=== PATIENT | female | born 1960 | race Caucasian/White ===

== ENCOUNTER → 2021-11-01 11:19 | Outpatient (CLI) | payer OTHER, SELFPAY ==
[2021-11-01 12:15] LABS: Blood Urea Nitrogen 17 mg/dl (7-17); Estimated Glomerular Filt Rate 125 ml/min (>60); GFR (African American) 151 ML/MIN (>60)
== END ==
PROVIDERS: Visit Provider Surgery
DX: Z01.818 Encounter for other preprocedural examination (principal)
CPT/HCPCS: 36415; 82565; 84520

== ENCOUNTER → 2021-11-08 09:29 | Outpatient (CLI) | payer OTHER, SELFPAY ==
--- NOTE | 2021-11-08 09:41 | CT_ITS ---
FINAL REPORT CLINICAL HISTORY: abdominal pain and ventral hernia UMBILICAL ABD PAIN FINDINGS: Technique: The patient was injected with intravenous contrast. Axial images through the abdomen and pelvis were performed. Oral contrast was given. This study was performed with techniques to keep radiation doses as low as reasonably achievable (ALARA). Individualized dose reduction techniques using automated exposure control or adjustment of mA and/or kV according to the patient's size were employed. Abdomen: The lung bases are clear. The liver is normal in size and attenuation. Patient is status post cholecystectomy. The spleen is unremarkable. The adrenals are normal. The pancreas is unremarkable. There is a 1.9 cm fat attenuation mass in the lower pole of the left kidney consistent with an angiomyolipoma. The aorta is normal in caliber. There is no free fluid or adenopathy. Pelvis: The patient is status post appendectomy and hysterectomy. The urinary bladder is unremarkable. There is no free fluid or adenopathy. IMPRESSION: Postsurgical changes as detailed above. Mass in the left kidney consistent with an angiomyolipoma. Reviewed, Interpreted and Dictated by Tutu Guadalupe III, MD Transcribed by Viviane Adan Authenticated by Tutu Guadalupe III, MD on 11/08/2021 12:47:39 PM [facility]
== END ==
PROVIDERS: PCP Family Medicine; Visit Provider Surgery
DX: K43.9 Ventral hernia without obstruction or gangrene (principal)
CPT/HCPCS: 74177; Q9967

== ENCOUNTER → 2021-12-03 10:03 | Outpatient (CLI) | payer OTHER, SELFPAY ==
[2021-12-03 10:10] LABS: MANUAL DIFFERENTIAL MANUAL DIFFERENTIAL (MANUAL DIFF)
[2021-12-03 10:54] LABS: Basophils # 0.1 K/mm3 (0-0.2); Eosinophils # 0.1 K/mm3 (0.0-0.4); Eosinophils % 0.9 % (0.1-12.0); Hematocrit 42.1 % (37.0-47.0); Hemoglobin 13.5 g/dL (12.2-16.2); Lymphocytes # 1.3 K/mm3 (0.7-4.5); Lymphocytes % 15.4 % (10-50); Mean Corpuscular Volume 93.7 fl (81-99); Mean Platelet Volume 9.6 fl (7.4-10.4); Monocytes # 0.3 K/mm3 (0.1-1.0); Monocytes % 3.5 % (1.7-9.3); Neutrophils # 6.7 K/mm3 (1.8-7.8); Neutrophils % 79.2 % (37.0-80.0); Platelet Count 249 K/mm3 (142-424); Red Cell Distribution Width 14.5 % (11.5-17.5); White Blood Count 8.5 K/mm3 (4.8-10.8)
[2021-12-03 11:21] LABS: Anion Gap 3.2 mEq/L (5-15); Blood Urea Nitrogen 13 mg/dl (7-17); Calcium 9.5 mg/dl (8.4-10.2); Carbon Dioxide 29 mmol/L (22.0-30.0); Chloride 105 mmol/L (98-107); Estimated Glomerular Filt Rate 101 ml/min (>60); GFR (African American) 123 ML/MIN (>60); Glucose 106 mg/dl (74-100); Potassium 4.2 mmoL/L (3.5-5.1); Sodium 133 mmol/L (136-145)
[2021-12-03 17:51] LABS: Lymphocytes % 16 % (10-50); Monocytes % 3 % (2-9); Neutrophils % 81 % (42-76); Platelet Estimate Normal; Total Cells Counted 100
== END ==
PROVIDERS: Visit Provider Surgery
DX: Z01.812 Encounter for preprocedural laboratory examination (principal); Z11.52 Encounter for screening for COVID-19; K43.9 Ventral hernia without obstruction or gangrene
CPT/HCPCS: 36415; 80048; 85007; 85014; 85018; 85048; 85049; C9803; U0003; U0005

== ENCOUNTER 2021-12-05 06:00 | Day surgery (SDC) | payer OTHER, SELFPAY ==
[2021-12-02 10:43] VITALS: BMI 24.1
[2021-12-05] VITALS (11 sets, daily range): BP systolic 125–150; BP diastolic 67–89; PULSE 93–106; RESP 12–18; TEMP 36.2–43; O2SAT 92–100
--- NOTE | 2021-12-05 07:00 | HMH.ANESCL ---
[facility] Anesthesia Checklist - Patient Identification Patient Identification: Arm Band - Structural Data Admitted From: Home Planned Operative Procedure/s: Lap. inguinal hernia repair Consent for Planned Operative Procedure(s) Verified: Yes - NPO Status Verified Time NPO: 00:00 - Additional verifications Anesthesia Reactions: No Hx Blood Transfusions: No Blood Transfusion Reaction: No - Airway Assessment C-Spine Mobility Assessed: Yes TMJ Mobility Assessed: Yes Dentition: Good Dentition (Significant overbite) - Neurological Assessment Level of Consciousness: Awake Hx Seizures: No Numbness or tingling in extremities: No - Anesthesia Plan Anesthesia Risk discussed: Yes Anesthesia Plan: Verified ASA Class: II Anesthesia Type: General [facility] History I have reviewed the patient's past medical history: Yes Medical History: Reports:: Gastroesophageal Reflux Disease(GERD) Denies:: Cancer, Diabetes Mellitus Type 1, Diabetes Mellitus Type 2, Internal Pacemaker, MRSA, Seizures *Have you ever received a pneumonia vaccine?: No *Have you received a flu vaccine this season?: No Other Medical History: Denies: Blood Transfusion Reaction Anesthesia experience/problems:: None Other Surgeries: No: Pacemaker Amputation: No Fractures: No - *Social History Last grade of school completed: High school graduate Smoking Status: Never smoker Alcohol Intake: never Substance Use Type: denies use *Occupational Status:: employed Housing: house Household Members: spouse *Travel in the last 8 weeks: None Family Hx:: Unable to obtain
--- NOTE | 2021-12-05 08:32 | HMH.OPNOTE ---
Date of procedure: 12/05/21 Pre-op Diagnosis:: Trocar site incisional hernia Post-op Diagnosis:: Same Procedure performed:: Laparoscopically directed incisional hernia repair with placement of large size (8.0 cm) Bard Ventralex mesh Surgeon:: Tutu Garcia MD ASSISTANT PROFESSOR OF CRIMINAL JUSTICE:: Matthew Butler Anesthesia: VIR[place]IE Estimated blood loss (mL): 10 Clinical Note:: Patient presents for trocar incisional hernia repair. She is a very pleasant 61-year-old female from [facility] referred by Magda Rush for possible ventral hernia.? She states that she noticed an area several weeks ago characterized as some focal swelling in the mid upper abdomen.? She denies any significant pain.? She has undergone multiple laparoscopic procedures.? I had performed laparoscopic appendectomy on her for acute appendicitis on 09/09/2011 and laparoscopic cholecystectomy for biliary dyskinesia on 08/05/2012.? She had a laparoscopic hysterectomy at outside facility in 2009.? The bulge is above her umbilicus at incision done for her hysterectomy.? She does have some minor discomfort. I had her undergo CT scan. Interestingly this reveals no mention of a hernia. I did review the images and there appears to be a trocar site hernia at the site in question. Options were discussed with the patient. She wished to pursue repair. Plan was made for laparoscopy with laparoscopically directed versus fully laparoscopic repair. Operative findings:: She had a trocar site hernia is an incisional hernia in her upper abdomen with herniated falciform ligament. Defect size measured approximately 2 cm estimated. Operative note:: Patient was taken to the operating room. She was given preoperative intravenous antibiotics. In the operating room she was placed in a supine position. General anesthesia was induced via endotracheal tube. Garcia catheter was placed for bladder decompression. Abdomen was prepped and draped in the standard surgical fashion. 5 mm incision was made in the left subcostal area. 5 mm trocar was inserted under laparoscopic visualization. CO2 pneumoperitoneum was achieved to 15 mmHg. Laparoscopic surveillance was carried out. There were minimal intra-abdominal adhesions. The she had a trocar site hernia in her upper abdomen with herniated falciform ligament. She reduced this and dissected down the falciform ligament she ultimately required placement of additional 5 mm trocar in the left lower and right lower abdomen. Herniated falciform ligament was reduced from the defect and divided with JOHN ultrasonic harmonic hannah. Dissection was carried down superiorly to allow for mesh placement. Overall size of the defect appeared to measure about 2 cm. Plan was made for placement of large sized Bard Ventralex mesh for good fascial overlap. Large sized Bard Ventralex mesh measuring 8 cm diameter brought onto the field. 12 mm trocar was inserted through skin incision and previous laparoscopy scar at the site of the defect. Bard Ventralex mesh was inserted through the trocar. Trocar was then removed and mesh was elevated. It appeared to have good fascial overlap with excellent coverage laparoscopically. CO2 pneumoperitoneum was then evacuated. The tails of the mesh were sutured superiorly and inferiorly to the fascia with interrupted 2-0 Prolene suture. The Prolene tails were cut flush with the fascia. Fascia was closed over the mesh with several interrupted 0 Ethibond sutures. Please note that local anesthetic had been infiltrated. CO2 pneumo peritoneum was then reestablished. Mesh appeared to be in good position. However to allow for flush placement against the fascia the several OPTifix attacks were placed to secure the mesh. There was good hemostasis. Repair appeared adequate with good overlap. CO2 pneumoperitoneum was then evacuated. Additional local anesthetic was infiltrated. Skin incisions were closed with 4-0 Monocryl in subcuticular fashion. Steri-Strips and yessica
--- NOTE | 2021-12-05 08:41 | HMH.ANESI ---
[facility] Anesthesia Record Part I Intake, IV Amount: 800 Estimated blood loss (mL): 10 Urine output (mL): 75 Blood Pressure: 142/75 SaO2: 93 Pulse Rate: 102 Respiratory Rate: 17 Temperature: 97.2 F Patient is:: Drowsy Stable to PACU at:: 08:38
--- NOTE | 2021-12-05 10:52 | HMH.ANESII ---
[facility] Anesthesia Record Part II Discharge Time: 09:08 Destination: Surgical Day Care (OP Surgery) PACU nurse assessment reviewed?: Yes Patient Condition:: Good Anesthesia Complications:: None Swallowing reflex intact?: Yes Cyanosis?: No Blood Pressure: 141/80 Pulse Rate: 95 Temperature: 97.2 F Mental Status: Alert & Oriented Pain level:: 0 Nausea and/or vomitting:: None Intake, IV Amount: 0
[2021-12-05 12:09] LABS: Microscopic,Cath URINE MICROSCOPIC (MICROSCOPIC)
[2021-12-05 12:33] LABS: Appearance,Urine/Cath CLEAR (Clear); Bilirubin,Cath Negative (Negative); Blood, Urine/Cath TRACE-L (Negative); Color,Urine/Cath YELLOW (Yellow); Glucose,Urine/Cath (UA) Negative (Negative); Ketones,Urine/Cath Negative (Negative); Leukocyte Esterase,Cath Negative (Negative); Nitrate,Cath Negative (Negative); PH,Urine/Cath 6.5 (5.0-8.5); Protein,Urine/Cath Negative (Negative); Specific Gravity, Urine/Cath 1.015 (1.005-1.030); Urobilinogen,Cath 0.2 EU/dl (0.2)
[2021-12-05 13:44] LABS: Bacteria,Urine/Cath TRACE /lpf; RBC,Urine/Cath Occasional # /hpf (0-3); Squamous Epithelial Ur./Cath Occasional #/hpf (0-5)
== END 2021-12-05 09:42 | disposition home or self-care (01) ==
LOC: OR 06:03
PROVIDERS: PCP Family Medicine; Visit Provider Surgery
PROC: 0WQF4ZZ Repair Abdominal Wall, Percutaneous Endoscopic Approach (ICD-10-PCS; CPT 49654; principal; 2021-12-05 07:30)
DX: K43.2 Incisional hernia without obstruction or gangrene (principal); K21.9 Gastro-esophageal reflux disease without esophagitis; Z79.899 Other long term (current) drug therapy
CPT/HCPCS: 49654; 81001; 96374; C1781; J2405

== ENCOUNTER → 2022-07-03 08:36 | Outpatient (CLI) | payer OTHER, SELFPAY ==
[2022-07-03 20:25] LABS: Alanine Aminotransferase 15 U/L (12-78); Albumin Level 4.5 g/dl (3.5-5.0); Albumin/Globulin Ratio 1.8 (1.1-1.8); Alkaline Phosphatase 92 U/L (38-126); Anion Gap 18.4 mEq/L (5-15); Aspartate Amino Transferase 23 U/L (14-36); Bilirubin,Total 0.3 mg/dl (0.2-1.3); Blood Urea Nitrogen 20 mg/dl (7-17); Calcium 9.6 mg/dl (8.4-10.2); Carbon Dioxide 28 mmol/L (22.0-30.0); Chloride 97 mmol/L (98-107); Cholesterol 198 mg/dl (140-200); Estimated Glomerular Filt Rate 101 ml/min (>60); GFR (African American) 122 ML/MIN (>60); Globulin 2.5 g/dL (1.3-3.2); Glucose 89 mg/dl (74-100); HDL Cholesterol 66 mg/dl (40-60); Potassium 4.4 mmoL/L (3.5-5.1); Sodium 139 mmol/L (136-145); Triglycerides 71 mg/dl (30-150); VLDL Cholesterol 14 mg/dL (0-40)
[2022-07-03 20:41] LABS: 25-OH Vitamin D, Total 37.9 ng/mL (30-100)
[2022-07-03 20:51] LABS: Microalbumin < 6.000 mg/L (0-16.7)
[2022-07-03 20:56] LABS: Thyroid Stimulating Hormone 1.19 uIU/mL (0.465-4.68)
[2022-07-03 21:02] LABS: Basophils # 0.1 K/mm3 (0-0.2); Eosinophils # 0.1 K/mm3 (0.0-0.4); Eosinophils % 2.1 % (0.1-12.0); Hematocrit 56.5 % (37.0-47.0); Hemoglobin 17.5 g/dL (12.2-16.2); Lymphocytes # 1.8 K/mm3 (0.7-4.5); Lymphocytes % 28.4 % (10-50); Mean Corpuscular HGB Conc 30.9 g/dL (31.8-35.4); Mean Corpuscular Hemoglobin 29.7 pg (27.0-31.2); Monocytes # 0.3 K/mm3 (0.1-1.0); Monocytes % 4.7 % (1.7-9.3); Neutrophils % 63.7 % (37.0-80.0); Platelet Count 169 K/mm3 (142-424); Red Blood Count 5.88 M/mm3 (4.20-5.40); Red Cell Distribution Width 13.5 % (11.5-17.5); White Blood Count 6.3 K/mm3 (4.8-10.8)
[2022-07-03 21:15] LABS: Vitamin B12 476 pg/mL (239-931)
== END ==
PROVIDERS: PCP Nurse Practitioner; Visit Provider Nurse Practitioner
DX: I10 Essential (primary) hypertension (principal); Z13.220 Encounter for screening for lipoid disorders; Z13.1 Encounter for screening for diabetes mellitus; Z79.899 Other long term (current) drug therapy
CPT/HCPCS: 80053; 80061; 82043; 82306; 82607; 84443; 85025

== ENCOUNTER → 2022-12-26 13:48 | Outpatient (CLI) | payer OTHER, SELFPAY ==
[2022-12-26 18:43] LABS: Alanine Aminotransferase 20 U/L (12-78); Albumin Level 4.3 g/dl (3.5-5.0); Albumin/Globulin Ratio 1.5 (1.1-1.8); Alkaline Phosphatase 77 U/L (38-126); Anion Gap 16.4 mEq/L (5-15); Aspartate Amino Transferase 26 U/L (14-36); Bilirubin,Total 0.4 mg/dl (0.2-1.3); Blood Urea Nitrogen 14 mg/dl (7-17); Calcium 9.2 mg/dl (8.4-10.2); Carbon Dioxide 31 mmol/L (22.0-30.0); Chloride 97 mmol/L (98-107); Estimated Glomerular Filt Rate 125 ml/min (>60); GFR (African American) 151 ML/MIN (>60); Globulin 2.9 g/dL (1.3-3.2); Glucose 137 mg/dl (74-100); Potassium 4.4 mmoL/L (3.5-5.1); Sodium 140 mmol/L (136-145); Total Protein,Serum 7.2 g/dl (6.3-8.2)
[2022-12-26 19:26] LABS: Creatinine,Urine Random 49 mg/dL (Not Estab.); Microalbumin < 6.000 mg/L (0-16.7)
== END ==
PROVIDERS: PCP Nurse Practitioner; Visit Provider Nurse Practitioner
DX: I10 Essential (primary) hypertension (principal)
CPT/HCPCS: 80053; 82043; 82570

== ENCOUNTER → 2023-07-03 06:47 | Outpatient (CLI) | payer OTHER, SELFPAY ==
[2023-07-03 19:01] LABS: Basophils % 0.5 % (0.1-2.0); Eosinophils # 0.1 K/mm3 (0.0-0.4); Eosinophils % 2.1 % (0.1-12.0); Hematocrit 41.1 % (37.0-47.0); Hemoglobin 13.3 g/dL (12.2-16.2); Lymphocytes # 1.6 K/mm3 (0.7-4.5); Lymphocytes % 29.7 % (10-50); Mean Corpuscular HGB Conc 32.3 g/dL (31.8-35.4); Mean Corpuscular Hemoglobin 30.6 pg (27.0-31.2); Mean Corpuscular Volume 94.7 fl (81-99); Mean Platelet Volume 10.6 fl (7.4-10.4); Monocytes # 0.2 K/mm3 (0.1-1.0); Monocytes % 4.4 % (1.7-9.3); Neutrophils # 3.4 K/mm3 (1.8-7.8); Neutrophils % 63.2 % (37.0-80.0); Platelet Count 239 K/mm3 (142-424); Red Blood Count 4.34 M/mm3 (4.20-5.40); Red Cell Distribution Width 13.7 % (11.5-17.5); White Blood Count 5.4 K/mm3 (4.8-10.8)
[2023-07-03 19:15] LABS: Alanine Aminotransferase 20 U/L (12-78); Albumin Level 4.4 g/dl (3.5-5.0); Albumin/Globulin Ratio 1.6 (1.1-1.8); Alkaline Phosphatase 76 U/L (38-126); Anion Gap 9.5 mEq/L (5-15); Aspartate Amino Transferase 27 U/L (14-36); Bilirubin,Total 0.4 mg/dl (0.2-1.3); Blood Urea Nitrogen 18 mg/dl (7-17); Calcium 8.6 mg/dl (8.4-10.2); Carbon Dioxide 28 mmol/L (22.0-30.0); Chloride 104 mmol/L (98-107); Chol/HDL Ratio 3.2 (1-3.5); Cholesterol 218 mg/dl (140-200); Estimated Glomerular Filt Rate 101 ml/min (>60); GFR (African American) 122 ML/MIN (>60); Globulin 2.8 g/dL (1.3-3.2); Glucose 95 mg/dl (74-100); HDL Cholesterol 68 mg/dl (40-60); Potassium 4.5 mmoL/L (3.5-5.1); Sodium 137 mmol/L (136-145); Total Protein,Serum 7.2 g/dl (6.3-8.2); Triglycerides 76 mg/dl (30-150); VLDL Cholesterol 15 mg/dL (0-40)
[2023-07-03 19:26] LABS: Direct LDL Cholesterol 116.98 mg/dL (100-129)
[2023-07-03 19:46] LABS: Thyroid Stimulating Hormone 0.87 uIU/mL (0.465-4.68)
[2023-07-03 20:16] LABS: Hemoglobin A1C 5.6 % (4.0-6.0)
== END ==
PROVIDERS: PCP Nurse Practitioner; Visit Provider Nurse Practitioner
DX: I10 Essential (primary) hypertension (principal); Z13.1 Encounter for screening for diabetes mellitus; Z13.220 Encounter for screening for lipoid disorders
CPT/HCPCS: 80053; 80061; 83036; 84443; 85025

== ENCOUNTER → 2023-07-11 23:00 | Outpatient (CLI) | payer OTHER, SELFPAY ==
[2023-07-11 18:30] LABS: Uric Acid 3.1 mg/dl (2.5-6.2)
[2023-07-11 18:30] LABS: Basophils % 0.2 % (0.1-2.0); Eosinophils # 0.1 K/mm3 (0.0-0.4); Eosinophils % 1.1 % (0.1-12.0); Hematocrit 39.9 % (37.0-47.0); Hemoglobin 13.2 g/dL (12.2-16.2); Lymphocytes # 1.4 K/mm3 (0.7-4.5); Lymphocytes % 20.9 % (10-50); Mean Corpuscular Volume 93.9 fl (81-99); Mean Platelet Volume 9.8 fl (7.4-10.4); Monocytes # 0.3 K/mm3 (0.1-1.0); Monocytes % 5.1 % (1.7-9.3); Neutrophils # 4.9 K/mm3 (1.8-7.8); Neutrophils % 72.7 % (37.0-80.0); Platelet Count 247 K/mm3 (142-424); Red Blood Count 4.25 M/mm3 (4.20-5.40); Red Cell Distribution Width 13.6 % (11.5-17.5); White Blood Count 6.8 K/mm3 (4.8-10.8)
== END ==
PROVIDERS: PCP Nurse Practitioner; Visit Provider Nurse Practitioner
DX: M79.672 Pain in left foot (principal)
CPT/HCPCS: 84550; 85025

== ENCOUNTER → 2023-07-12 10:30 | Outpatient (CLI) | payer OTHER, SELFPAY ==
--- NOTE | 2023-07-12 10:33 | XR_ITS ---
FINAL REPORT CLINICAL HISTORY: left foot pain COMPARISON: None FINDINGS: 3 views of the left foot were obtained. There is no acute fracture or dislocation. The joint spaces are intact. There are soft tissue calcifications adjacent to the head of the fifth metatarsal. Plantar calcaneal spur is present. IMPRESSION: No acute fracture Reviewed, Interpreted and Dictated by Tutu Guadalupe III, MD Transcribed by Pepper Ferreira Authenticated and [facility]
== END ==
PROVIDERS: PCP Family Medicine; Visit Provider Nurse Practitioner
DX: M79.672 Pain in left foot (principal)
CPT/HCPCS: 73630

== ENCOUNTER 2024-01-01 12:03 | Outpatient (CLI) | payer OTHER, SELFPAY ==
[2024-01-01 18:18] LABS: Hemoglobin A1C 5.5 % (4.0-6.0)
[2024-01-01 18:38] LABS: Alanine Aminotransferase 17 U/L (12-78); Albumin Level 4.2 g/dl (3.5-5.0); Albumin/Globulin Ratio 1.5 (1.1-1.8); Alkaline Phosphatase 72 U/L (38-126); Anion Gap 12.2 mEq/L (5-15); Aspartate Amino Transferase 22 U/L (14-36); Bilirubin,Total 0.5 mg/dl (0.2-1.3); Blood Urea Nitrogen 16 mg/dl (7-17); Calcium 9.6 mg/dl (8.4-10.2); Carbon Dioxide 28 mmol/L (22.0-30.0); Chloride 104 mmol/L (98-107); Chol/HDL Ratio 2.7 (1-3.5); Cholesterol 217 mg/dl (140-200); Estimated Glomerular Filt Rate 101 ml/min (>60); GFR (African American) 122 ML/MIN (>60); Globulin 2.8 g/dL (1.3-3.2); Glucose 93 mg/dl (74-100); HDL Cholesterol 80 mg/dl (40-60); Potassium 4.2 mmoL/L (3.5-5.1); Sodium 140 mmol/L (136-145); Triglycerides 50 mg/dl (30-150); VLDL Cholesterol 10 mg/dL (0-40)
[2024-01-01 18:49] LABS: Direct LDL Cholesterol 108.58 mg/dL (100-129)
== END 2024-01-01 23:59 | disposition home or self-care (01) ==
LOC: LAB.DROPOF 01-02 12:03
PROVIDERS: PCP Nurse Practitioner; Visit Provider Nurse Practitioner
DX: I10 Essential (primary) hypertension (principal); E78.5 Hyperlipidemia, unspecified; Z79.899 Other long term (current) drug therapy
CPT/HCPCS: 80053; 80061; 83036

== ENCOUNTER 2024-01-14 10:45 | Outpatient (CLI) | payer OTHER, SELFPAY ==
--- NOTE | 2024-01-14 10:45 | MM_ITS ---
PROCEDURE INFORMATION: Exam: MG Bilateral Screening 3D Mammography Exam date and time: 01/14/2024 10:47 AM Age: 63 years old Clinical indication: Screening mammogram TECHNIQUE: Imaging protocol: Bilateral Screening tomosynthesis and 2D mammography including computer-aided detection (CAD) when performed. COMPARISON: 1. MG DMSB DIG MAMM-SCREEN LANDY W/CAD 06/12/2017 9:36 AM 2. MG DMSB DIG MAMM-SCREEN LANDY 06/18/2015 10:54 AM 3. MG DMSB DIG MAMM-SCREEN LANDY 06/12/2014 3:52 PM 4. MG DMSB DIG MAMM-SCREEN LANDY 05/28/2013 9:13 AM FINDINGS: MAMMOGRAPHY: Breast composition: There are scattered areas of fibroglandular density. Mass: None. Architectural distortion: No new or suspicious architectural distortion. Calcifications: No new or suspicious calcifications are present Asymmetric density: No new or suspicious asymmetric density is present Skin thickening: None. Axillary adenopathy: None. IMPRESSION: No mammographic evidence of malignancy. Recommend annual screening mammography unless otherwise clinically indicated. ASSESSMENT: BI-RADS category 1: Negative.
== END 2024-01-14 23:59 | disposition home or self-care (01) ==
LOC: RAD 10:45
PROVIDERS: PCP Nurse Practitioner; Visit Provider Nurse Practitioner
DX: Z12.31 Encounter for screening mammogram for malignant neoplasm of breast (principal)
CPT/HCPCS: 77063; 77067

== ENCOUNTER 2024-07-02 09:40 | Outpatient (CLI) | payer OTHER, SELFPAY ==
[2024-07-02 19:15] LABS: Creatinine,Urine Random 36 mg/dL (Not Estab.)
[2024-07-02 19:38] LABS: Microalbumin < 6.000 mg/L (0-16.7)
[2024-07-02 19:47] LABS: Basophils % 0.6 % (0.1-2.0); Eosinophils # 0.1 K/mm3 (0.0-0.4); Eosinophils % 1.9 % (0.1-12.0); Hematocrit 40.3 % (37.0-47.0); Hemoglobin 13.3 g/dL (12.2-16.2); Lymphocytes # 1.3 K/mm3 (0.7-4.5); Lymphocytes % 26.8 % (10-50); Mean Corpuscular HGB Conc 33.1 g/dL (31.8-35.4); Mean Corpuscular Hemoglobin 30.6 pg (27.0-31.2); Mean Corpuscular Volume 92.6 fl (81-99); Mean Platelet Volume 10.5 fl (7.4-10.4); Monocytes # 0.3 K/mm3 (0.1-1.0); Monocytes % 5.5 % (1.7-9.3); Neutrophils # 3.1 K/mm3 (1.8-7.8); Neutrophils % 65.2 % (37.0-80.0); Platelet Count 246 K/mm3 (142-424); Red Blood Count 4.35 M/mm3 (4.20-5.40); Red Cell Distribution Width 13.8 % (11.5-17.5); White Blood Count 4.7 K/mm3 (4.8-10.8)
[2024-07-02 20:16] LABS: Alanine Aminotransferase 19 U/L (12-78); Albumin Level 4.2 g/dl (3.5-5.0); Albumin/Globulin Ratio 1.7 (1.1-1.8); Alkaline Phosphatase 67 U/L (38-126); Anion Gap 11.2 mEq/L (5-15); Aspartate Amino Transferase 23 U/L (14-36); Bilirubin,Total 0.6 mg/dl (0.2-1.3); Blood Urea Nitrogen 16 mg/dl (7-17); Calcium 9.3 mg/dl (8.4-10.2); Carbon Dioxide 27 mmol/L (22.0-30.0); Chloride 106 mmol/L (98-107); Chol/HDL Ratio 3.2 (1-3.5); Cholesterol 203 mg/dl (140-200); Estimated Glomerular Filt Rate 100 ml/min (>60); GFR (African American) 121 ML/MIN (>60); Globulin 2.5 g/dL (1.3-3.2); Glucose 93 mg/dl (74-100); HDL Cholesterol 64 mg/dl (40-60); Potassium 4.2 mmoL/L (3.5-5.1); Sodium 140 mmol/L (136-145); Total Protein,Serum 6.7 g/dl (6.3-8.2); Triglycerides 60 mg/dl (30-150); VLDL Cholesterol 12 mg/dL (0-40)
[2024-07-02 20:36] LABS: Direct LDL Cholesterol 113.91 mg/dL (100-129)
[2024-07-02 20:56] LABS: Thyroid Stimulating Hormone 0.89 uIU/mL (0.465-4.68)
[2024-07-02 21:15] LABS: Vitamin B12 469 pg/mL (239-931)
== END 2024-07-02 23:59 | disposition home or self-care (01) ==
LOC: LAB.DROPOF 07-04 09:16
PROVIDERS: PCP Nurse Practitioner; Visit Provider Nurse Practitioner
DX: K21.9 Gastro-esophageal reflux disease without esophagitis (principal); I10 Essential (primary) hypertension; E78.5 Hyperlipidemia, unspecified; Z12.11 Encounter for screening for malignant neoplasm of colon
CPT/HCPCS: 80050; 80053; 80061; 82043; 82570; 82607; 84443; 85025

== ENCOUNTER 2024-12-31 09:55 | Outpatient (CLI) | payer OTHER, SELFPAY ==
[2024-12-31 19:39] LABS: Alanine Aminotransferase 16 U/L (12-78); Albumin Level 4.6 g/dl (3.5-5.0); Albumin/Globulin Ratio 1.9 (1.1-1.8); Alkaline Phosphatase 67 U/L (38-126); Anion Gap 12.3 mEq/L (5-15); Aspartate Amino Transferase 21 U/L (14-36); Bilirubin,Total 0.6 mg/dl (0.2-1.3); Blood Urea Nitrogen 16 mg/dl (7-17); Calcium 9.3 mg/dl (8.4-10.2); Carbon Dioxide 28 mmol/L (22.0-30.0); Chloride 105 mmol/L (98-107); Cholesterol 189 mg/dl (140-200); Estimated Glomerular Filt Rate 100 ml/min (>60); GFR (African American) 121 ML/MIN (>60); Globulin 2.4 g/dL (1.3-3.2); Glucose 93 mg/dl (74-100); HDL Cholesterol 64 mg/dl (40-60); Potassium 4.3 mmoL/L (3.5-5.1); Sodium 141 mmol/L (136-145); Triglycerides 59 mg/dl (30-150); VLDL Cholesterol 12 mg/dL (0-40)
[2024-12-31 19:43] LABS: Creatinine,Urine Random 48 mg/dL (Not Estab.); Microalbumin < 6.000 mg/L (0-16.7)
[2024-12-31 19:50] LABS: Direct LDL Cholesterol 104.87 mg/dL (100-129)
[2024-12-31 20:11] LABS: Hemoglobin A1C 5.5 % (4.0-6.0)
[2024-12-31 20:20] LABS: HIV Combo NEGATIVE (Negative)
[2024-12-31 21:36] LABS: Hepatitis C Ab Qual. W/ RFX NEGATIVE (Negative)
== END 2024-12-31 23:59 | disposition home or self-care (01) ==
LOC: LAB.DROPOF 01-01 13:00
PROVIDERS: PCP Nurse Practitioner; Visit Provider Nurse Practitioner
DX: E78.5 Hyperlipidemia, unspecified (principal); I10 Essential (primary) hypertension; K21.9 Gastro-esophageal reflux disease without esophagitis; Z13.0 Encounter for screening for diseases of the blood and blood-forming organs and certain disorders involving the immune mechanism; Z13.1 Encounter for screening for diabetes mellitus
CPT/HCPCS: 80053; 80061; 82043; 82570; 83036; 86803; 87389

== ENCOUNTER 2025-07-13 10:15 | Outpatient (CLI) | payer MEDICARE, SELFPAY ==
[2025-07-13 15:20] LABS: Albumin Level 4.2 g/dl (3.5-5.0)
[2025-07-13 15:21] LABS: Alanine Aminotransferase 17 U/L (12-78); Albumin/Globulin Ratio 1.4 (1.1-1.8); Alkaline Phosphatase 69 U/L (38-126); Anion Gap 14.1 mEq/L (5-15); Aspartate Amino Transferase 22 U/L (14-36); Bilirubin,Total 0.6 mg/dl (0.2-1.3); Blood Urea Nitrogen 15 mg/dl (7-17); Calcium 9.4 mg/dl (8.4-10.2); Carbon Dioxide 26 mmol/L (22.0-30.0); Chloride 104 mmol/L (98-107); Cholesterol 190 mg/dl (140-200); Creatinine,Serum 0.60 mg/dl (0.52-1.04); Estimated Glomerular Filt Rate 100 ml/min (>60); GFR (African American) 121 ML/MIN (>60); Globulin 2.9 g/dL (1.3-3.2); Glucose 95 mg/dl (74-100); HDL Cholesterol 69 mg/dl (40-60); Potassium 4.1 mmoL/L (3.5-5.1); Sodium 140 mmol/L (136-145); Total Protein,Serum 7.1 g/dl (6.3-8.2); Triglycerides 56 mg/dl (30-150)
[2025-07-13 16:07] LABS: Vitamin B12 270 pg/mL (239-931)
== END 2025-07-13 23:59 ==
LOC: LAB.DROPOF 07-15 10:16
PROVIDERS: PCP Nurse Practitioner; Visit Provider Nurse Practitioner
DX: K21.9 Gastro-esophageal reflux disease without esophagitis (principal); I10 Essential (primary) hypertension; E78.5 Hyperlipidemia, unspecified
CPT/HCPCS: 80053; 80061; 82607

== ENCOUNTER 2025-08-04 10:05 | Outpatient (CLI) | payer MEDICARE, SELFPAY ==
--- OUTSIDE RECORDS SUMMARY | 2025-06-29 09:45 | XMS_ITS | Encounter Summary ---
Author Organization [place] [address] Care Team Providers Care Long Distance Billing Operator Name Role Phone Gentry Cook MD Primary Care Provider [phone] Reason for Referral * Biopsy Procedure (Routine) - Authorization Not Needed Specialty Diagnoses / Procedures Referred By Contac t Referred To Contact Dermatology Diagnoses AK (actinic keratosis) Procedures MA DESTRUCTION PREMALIGNANT LESION 1ST Adair Jackson MD [address] [place] [address] Phone: tel: fax: Adair Jackson MD [address] [place] [address] Phone: tel: fax: Referral ID Status Reason Start Date Expiration Date Visits Requested Visits Authorized [id number] Authorization Not Needed 5 06/29/2026 1 1 Reason for Visit * Reason Comments Establish Care * Biopsy Procedure (Routine) - Authorization Not Needed Specialty Diagnoses / Procedures Referred By Contdakota t Referred To Contact Dermatology Diagnoses AK (actinic keratosis) Procedures MA DESTRUCTION PREMALIGNANT LESION 1ST Adair Jackson MD [address] [place] [address] Phone: tel: fax: Adair Jackson MD [address] [place] [address] Phone: tel: fax: Referral ID Status Reason Start Date Expiration Date Visits Requested Visits Authorized [id number] Authorization Not Needed 06/29/2026 1 1 Encounter Details Date Type Department Care Team (Late st Contact Info) Description 06/29/2025 9:45 AM EST [facility] [address] [facility] Building [address] [id number] Adair Jackson MD [address] [id number] Encounter for screening for malignant neoplasm of skin (Primary Dx); History of melanoma; History of basal cell carcinoma (BCC); Multiple benign melanocytic nevi; Lentigines; SK (seborrheic keratosis); Brown angioma; AK (actinic keratosis) Social History Tobacco Use Types Packs/Day Years Used Date Smoking Tobacco: Never Smokeless Tobacco: Never Tobacco Cessation:Counseling Given: Not Answered Alcohol Use Standard Drinks/Week Comments No 0 (1 standard drink = 0.6 oz pur e alcohol) Sexually Active Control Partners Comments Yes Surgical Male Comments No Sex and Gender Information Value Date Recorded Sex Assigned at Not on file Legal Sex Female 4:15 AM EDT Gender Identity Not on file Sexual Orientation Not on file Occupation Industry Job Start Date Job End Date Not on file Not on file Not on file Not on file documented as of this encounter Progress Notes * Adair Jackson MD - 06/29/2025 9:45 AM EST HPI: Elias is a 65 y.o. female that presents for full body skin exam. She denies any changing or concerning lesions. History of melanoma and BCC. She requests a full skin exam. Dermatology Past History: Personal History of Skin Cancer/Melanoma: YES -MM, 0.3 mm depth, T1a, left upper arm, s/p WLE with Dr. Stoner 01/2023 -BCC, right chest, s/p excision 01/2023 Family history: Brother (Melanoma) Sunburns Easily: No Uses Sunscreen: Yes Social History reviewed with patient and no pertinent negatives at this time. Past Medical History: Past Medical History: Diagnosis Date Heartburn Hypertension Surgical History: Past Surgical History: Procedure Laterality Date APPENDECTOMY BLADDER SURGERY scope and dilation CHOLECYSTECTOMY HERNIA REPAIR ventral HYSTERECTOMY 08/06/2009 [facility] bso SOFT TISSUE BIOPSY Left 01/09/2023 Narrow Excision Left Arm ; Surgeon: Clemente Stoner MD; Location: [facility]; Service: General TUBAL LIGATION Social History: Social History Tobacco Use Smoking status: Never Smokeless tobacco: Never Vaping Use Vaping status: Never Used Substance Use Topics Alcohol use: No Drug use: No Family History: Family History Problem Relation Age of Onset Arthritis Mother High Cholesterol Mother High Blood Pressure Mother Hypertension Mother Cancer Father High Cholesterol Father Allergies: No Known Allergies Current Medications: Current Outpatient Medications Medication lisinopriL (PRINIVIL;ZESTRIL) 20 mg Oral Tablet tablet multivitamin capsule omeprazole (PRILOSEC) 20 mg Oral Capsule, Delayed Release(E.C.) No current facility-administered medications for this visit. Review of Systems: Gen: Denies fever chills or unintended weight loss. Heme: No easy bruising or bleeding MS: No joint pain, muscle weakness or aches Neuro: No reported seizures, no reported NG's or memory loss Psych: No reported change in mood Physical Exam: There were no vitals filed for this visit. General: WDWN: Normal Mood/Affect: Normal Orientation: Normal Examination of the following was performed and was normal, except as noted below: Psych/neuro, Scalp/hair, head/face, conjunctivae/eyelids, Neck, axilla/chest, abdomen, back, right upper extremity, left upper extremity, Nails/digits, right lower extremity, left lower extremity, buttocks, peripheral vascular, lymphatic, declined exam breasts/genitalia/groin Assessment and Plan: History of melanoma skin cancer: There is a well-healed scar without pigment or nodularity located on the upper left arm Plan: Counseling. I counseled the patient regarding the following: Skin Care: Patients with a history of non-melanoma skin cancer should wear sunblock and sun protective clothing. Expectations: Scars from excisional sites of non-melanoma skin cancers should be monitored for any recurrences. Contact Office if: If the patient notices discoloration or a bump arising from a previously stable scar or any new lesions that are not healing. -MM, 0.3 mm depth, T1a, left upper arm, s/p WLE with Dr. Stoner 01/2023 -Continue clinical observation History of BCC No evidence of recurrence, patient reassured Plan: Counseling. I counseled the patient regarding the following: Skin Care: Patients with a history of non-melanoma skin cancer should wear sunblock and sun protective clothing. Expectations: Scars from excisional sites of non-melanoma skin cancers should be monitored for any recurrences. Contact Office if: If the patient notices discoloration or a bump arising from a previously stable scar or any new lesions that are not healing. Seborrheic Keratoses : stuck-on, warty, greasy brown papules with pseudo-horn cysts located on the body throughout Plan: Counseling I counseled the patient regarding the following: Skin Care: Seborrheic Keratoses are benign. No treatment is necessary. Expectations: Seborrheic Keratoses are benign warty growths. Patients get more of them as they age. Lentigines: reticulated light avina macules in sun distribution Plan: Counseling I counseled the patient regarding the following: Skin Care: Lentigines can resolve with broad spectrum sunscreen, sun avoidance, bleaching creams, retinoids, chemical peels and laser. Expectations: Lentigines are benign pigmented lesions that occur on sun-exposed and sun-damaged skin. They are easily treatable. Benign Nevi : regular, symmetrical, evenly-colored macules and papules located on the body throughout Plan: Counseling I counseled the patient regarding the following: Instructions: Monthly self-skin checks to monitor for any changes in moles are recommended. Reviewed ABCDE and Enoch Velazquezling warning signs and recommended evaluation if any moles change in size, shape or color; itch, burn or bleed. Recommended daily OTC sunscreen at least SPF 30 with reapplication and photoprotection measures Expectations: Benign Nevi are pigmented nests of cells within the skin. No treatment is necessary. Contact Office if: Any moles change in size, shape or color; itch, burn or bleed. Brown Angiomas : bright brown-red papules located on the body throughout Plan: Counseling I counseled the patient regarding the following: Skin Care: Brown Angiomas can resolve with lasers or electrodesiccation. Expectations: Brown Angiomas are benign vascular growths. No treatment is necessary. Actinic Keratosis : hypertrophic erythematous papule with hyperkeratotic scale located on the rightcheek x1 Plan: Counseling I counseled the patient regarding the following: Skin Care: Sun protective clothing and broad spectrum sunscreen can prevent the formation of Actinic Keratoses. AKs can resolve with cryotherapy, photodynamic therapy, imiquimod, topical 5-FU. Expectations: Actinic Keratoses are precancerous proliferations that occur within sun damaged skin.If untreated, a small subset of AKs can develop into Squamous Cell Carcinoma. Contact Office if: If AKs fail to resolve despite treatment, or if you develop a side effect from therapy, such as unbearable crusting, scabbing, redness and tenderness. Educated on appropriate use of sunscreen and sun avoidance measures. Plan: Liquid Nitrogen Body Location(s): right cheek x1 Procedure Note: A total of 1 lesions were treated with liquid nitrogen for 2 freeze-thaw cycles lasting 5 seconds. The patient's consent was obtained including but not limited to risks of crusting, scabbing, blistering, scarring, darker or emr specialist pigmentary change, recurrence, incomplete removal and infection. I reviewed with the patient in detail post-care instructions. Patient is to wear sunprotection, and avoid picking at any of the treated lesions. Pt may apply Vaseline to crusted or scabbing areas. Follow Up: 6 months fbse documented in this encounter Miscellaneous Notes * Patient Instructions - Yudi Gilmore MA - 06/29/2025 9:45 AM EST Images from the original note were not included. If you had a biopsy today, I recommend the following for wound care: I recommend leaving the bandage in place and avoiding showering/baths for 24 hours. Thereafter, recommend washing sites with water and soap daily and applying vaseline liberally (at least once daily)to optimize healing. We recommend AGAINST topical antibiotics like neosporin and triple antibiotic,as these can cause skin allergy and rash, which makes healing more difficult. We will call you withthe results. If you had spots frozen (treated with cryotherapy) today, I recommend daily application of vaselineto areas to help the healing process. To help prevent skin cancer and prevent again of your skin, I strongly recommend the following: - that you stay out of sun, particularly from 10 am to 2 pm - wear broad spectrum sunscreen with SPF30 or above (look for sunscreens with zinc oxide, titanium dioxide in them) - If you're using a lotion version: apply 2 tablespoons to entire body to ensure thick enough layer When outside for prolonged periods, re-apply sunscreen every 2-3 hours Specific sunscreens that we love: Neutrogena Pure and Free Baby, Blue Lizard or Cerave stick sunscreens, Eucerin sensitive skin sunscreen, vanicream sunscreen, EltaMD (can order this on [employer]) - wear a broad-rimmed hat, even one that has UPF in it (this is the SPF but for clothing) [employer] - wear sun protective clothing (clothing with UV protection factor, also called UPF) Options include [employer] and MyFab, though you can find this on [employer] too. I recommend that you perform skin exams once a month What should you watch for? Things that are bleeding, hurting, not healing, or moles that are changing. When it comes to your moles, please pay special attention to the ABCDEs (as illustrated below; reproduced from the Melan[employer]). Melanoma is most common on the back and the back of the legs, so please make sure to recruit help to look at these areas. Melanoma sometimes comes from an old mole, but it's sometimes a new spot. If you're ever worried about anything, please contact me. Also, if you have a history of skin cancer (particularly melanoma), I recommend that you take a feel of your scars from prior melanoma excision once monthly. Please call us and let us know if you notice any new or changing lesions or if you feel any new bumps within scars from prior skin cancer surgeries (we will get you in to have lesions evaluated further). A - Asymmetrical shape - One half of the lesion does not match the other half. B - Border -- The edges are ragged, notched, irregular, or blurred C- Color - The color is not the same throughout or it has shades of avina, brown, black, red, white, or blue. D - Diameter - The mole is greater than 6 millimeters in size, about the size of a pencil eraser. E - Evolving - lesions that are evolving or changing documented in this encounter Plan of Treatment Upcoming Encounters Date Type Department Care Team (Late st Contact Info) Description 12/29/2025 9:45 AM EDT Office Visit [facility] [address] [facility] [address] [place] [address] Adair Jackson MD [address] [place] [address] Scheduled Orders Name Type Priority Associated Diagnoses Orde r Schedule MA DESTRUCTION PREMALIGNANT LESION 1ST MA Charge Routine AK (actinic keratosis) Ordered: 06/29/2025 documented as of this encounter Visit Diagnoses Diagnosis Encounter for screening for malignant neoplasm of skin- Primary Screening for malignant neoplasm of the skin History of melanoma Personal history of malignant melanoma of skin History of basal cell carcinoma (BCC) Multiple benign melanocytic nevi Lentigines Other dyschromia SK (seborrheic keratosis) Other seborrheic keratosis Brown angioma Nevus, non-neoplastic AK (actinic keratosis) Actinic keratosis documented in this encounter Care Teams Long Distance Billing Operator Relationship Specialty Start Date End Date Gentry Cook MD [address] [place] [id number] PCP - General 06/13/10 documented as of this encounter
--- NOTE | 2025-08-04 10:30 | MM_ITS ---
PROCEDURE INFORMATION: Exam: MG Bilateral Screening 3D Mammography Exam date and time: 08/04/2025 10:28 AM Age: 65 years old Clinical indication: Screening examination TECHNIQUE: Imaging protocol: Bilateral Screening tomosynthesis and 2D mammography including computer-aided detection (CAD) when performed. COMPARISON: MG MM DIG SCREENING MAMM BI W/CAD 01/14/2024 10:47 AM FINDINGS: MAMMOGRAPHY: Breast composition: There are scattered areas of fibroglandular density. Mass: No new or suspicious masses Architectural distortion: None. Calcifications: No suspicious calcifications. Asymmetric density: None. Skin thickening: None. Axillary adenopathy: None. IMPRESSION: No mammographic evidence of malignancy. Annual screening is recommended unless otherwise clinically indicated. ASSESSMENT: BI-RADS Category 1: Negative.
--- OUTSIDE RECORDS SUMMARY | 2025-08-04 10:31 | XMS_ITS | Encounter Summary ---
Author Organization [facility] [place] [address] Care Team Providers Care Cow Trimmer Name Role Phone Gentry Cook MD Primary Care Provider [phone] Encounter Details Date Type Department Care Team (Latest Contact Info) Description 06/24/2025 Travel Social History Tobacco Use Types Packs/Day Years Used Date Smoking Tobacco: Never Smokeless Tobacco: Never Alcohol Use Standard Drinks/Week Comments No 0 [...] on file documented as of this encounter Plan of Treatment Upcoming Encounters Date Type Department Care Team (Late st Contact Info) Description 12/29/2025 9:45 AM EDT Office Visit [facility] [address] [facility] [address] [place] [id number] Adair Jackson MD [address] [place] [address] documented as of this encounter Visit Diagnoses Not on filedocumented in this encounter Care Teams Cow Trimmer Relationship Specialty Start Date End Date Gentry Cook MD [address] [place] [id number] PCP - General 06/13/10 documented as of this encounter
--- OUTSIDE RECORDS SUMMARY | 2025-08-04 10:31 | XMS_ITS | Clinical Summary ---
Author Organization [facility] Address [address] [place] [address] Phone Care Team Providers Care Rewriter Name Role Phone Gentry Cook MD Primary Care Provider [phone] Allergies No known active allergies Medications multivitamin capsule Take 1 Cap by mouth daily. Active lisinopriL (PRINIVIL;ZESTRI L) 20 mg Oral Tablet tablet daily. 07/03/2022 Activ e omeprazole (PRILOSEC) 20 mg Oral Capsule, Delayed Release(E.C.) Take 20 mg by mouth daily. Active Active Problems Problem Noted Date Diagnosed Date Malignant melanoma of left upper arm 01/03/2023 Overview (01/03/2023): Added automatically from request for surgery [id number] S/P hysterectomy with oophorectomy 06/06/2010 Encounters Date Type Department Care Team Description 06/29/2025 9:45 AM EST Office Visit [facility] [address] [place] [phone] Adair Jackson MD Encounter for screening for malignant neoplasm of skin (Primary Dx); History of melanoma; History of basal cell carcinoma (BCC); Multiple benign melanocytic nevi; Lentigines; SK (seborrheic keratosis); Brown angioma; AK (actinic keratosis) 06/24/2025 Travel from Last 3 Months Surgical History Surgery Date Site/Laterality Comments TUBAL LIGATION BLADDER SURGERY scope and dilation HYSTERECTOMY 08/06/2009 [facility] CHOLECYSTECTOMY HERNIA REPAIR ventral APPENDECTOMY SOFT TISSUE BIOPSY 01/09/2023 Left Narrow Excision Left Arm ; Surgeon: Clemente Stoner MD; Location: [facility]; Service: General Medical History Medical History Date Comments Heartburn Hypertension Family History Medical History Relation Name Comments Cancer Father High Cholesterol Father Arthritis Mother High Blood Pressure Mother High Cholesterol Mother Hypertension Mother Relation Name Status Comments Father Alive Mother Alive Social History Tobacco Use Types Packs/Day Years [...] file Not on file Not on file Obstetrics History Para Term AB IAB SAB Ectopic Multiple Livin g Live Births 2 2 Date Outcome GA Total Labor Labor/2nd/3rd Weight Sex Type Anes PTL Cate A1 A5 Name Clin Para Para Last Filed Vital Signs Vital Sign Reading Time Taken Comments Blood Pressure 128/66 01/25/2023 3:05 PM EDT Pulse 81 12/18/2023 9:34 AM EDT Temperature 36.4 C (97.6 F) 01/09/2023 11:20 AM EDT Respiratory Rate 15 01/09/2023 11:20 AM EDT Oxygen Saturation 98% 12/18/2023 9:34 AM EDT Inhaled Oxygen Concentration - - Weight 67.9 kg (149 lb 9.6 oz) 01/25/2023 3:05 P M EDT Height 162.6 cm (5' 4 ) 01/25/2023 3:05 PM EDT Body Mass Index 25.68 01/25/2023 3:05 PM EDT Plan of Treatment Upcoming Encounters Date Type Department Care Team (Late st Contact Info) Description 12/29/2025 9:45 AM EDT Office Visit [facility] [place] [facility] [address] [phone] Adair Jackson MD [address] [place] [address] Health Maintenance Due Date Last Done Comments Wellness Exam Medicare 1963 Hepatitis C Screening 1977 DTaP/TDaP/Td (1 - Tdap) 10/11/1996 10/10/1996 Cologuard 2004 Colon Cancer Screening 2004 Colonoscopy 2004 FIT 2004 Sigmoidoscopy 2004 Virtual Colonography 2004 Pneumococcal Vaccine 50+ (1 of 1 - PCV) 2009 Zoster (1 of 2) 2009 Breast Cancer Screening 06/12/2016 06/12/20 14, 05/28/2013 Bone Density Screening 2024 COVID-19 Vaccine (3 - 2024-2 6 season) 2025 01/11/2021, 12/21/2020 Influenza Vaccine (#1) 2025 Hepatitis B Vaccine Aged Out No longe r eligible based on patient's age to complete this topic Meningococcal B Vaccine Aged Out No l onger eligible based on patient's age to complete this topic Insurance [employer] MEDICARE HMO MR Care Teams Rewriter Relationship Specialty Start Date End Date Gentry Cook MD [address] [place] [phone] PCP - General 06/13/10
== END 2025-08-04 23:59 | disposition home or self-care (01) ==
LOC: RAD 10:06
PROVIDERS: PCP Nurse Practitioner; Visit Provider Nurse Practitioner
DX: Z12.31 Encounter for screening mammogram for malignant neoplasm of breast (principal); R92.323 Mammographic fibroglandular density, bilateral breasts
CPT/HCPCS: 77063; 77067